=== PATIENT | female | born 1995 | race Two or more races ===

== ENCOUNTER 2017-01-30 03:58 | Emergency (ER) | payer SELFPAY ==
[2017-01-30] MEDS ORDERED: ONDANSETRON HCL INJ/PF 4 MG/2 ML SDV IV ONE (04:22)
[2017-01-30] MEDS ORDERED: NORMAL SALINE 1000 ML 1,000 ML IV ONE (04:22)
[2017-01-30] MEDS ORDERED: MORPHINE SULFATE 10 MG/ML INJ IV ONE (04:22)
--- NOTE | 2017-01-30 04:24 | ER Document Report ---
ED GI/ - General Time seen by provider: 04:15 <ERICA VERA - Last Filed: 01/30/17 05:39> <DENITA BOWMAN - Last Filed: 01/30/17 06:17> - General Chief Complaint: Abdominal Pain Stated Complaint: ABDOMINAL PAIN Notes: Patient is a 22-year-old female that comes emergency department for chief complaint of pain in her right lower quadrant, she states that at about midnight she began having pain in her mid upper abdomen and she vomited twice, she states that pain has progressed and become constant worsening pain in her right lower abdomen. She denies flank pain, dysuria, vaginal discharge or bleeding, she denies any surgeries, medications, or past medical history. LMP a few days ago. (ERICA VERA) - Related Data Allergies/Adverse Reactions: DayQuil Adverse Reaction (Uncoded 01/30/17 03:59) Hives Past Medical History - General Information source: Patient - Social History Smoking Status: Current Some Day Smoker Frequency of alcohol use: Social Drug Abuse: None Lives with: Family Family History: Reviewed & Not Pertinent - Medical History Medical History: Negative Renal/ Medical History: Denies: Hx Peritoneal Dialysis Surgical Hx: Negative - Immunizations Immunizations up to date: Yes Hx Diphtheria, Pertussis, Tetanus Vaccination: Yes <ERICA VREA - Last Filed: 01/30/17 05:39> Review of Systems - Review of Systems Constitutional: No symptoms reported EENT: No symptoms reported Cardiovascular: No symptoms reported Respiratory: No symptoms reported Gastrointestinal: See HPI Genitourinary: No symptoms reported Female Genitourinary: No symptoms reported Musculoskeletal: No symptoms reported Skin: No symptoms reported Hematologic/Lymphatic: No symptoms reported Neurological/Psychological: No symptoms reported <ERICA VERA - Last Filed: 01/30/17 05:39> Physical Exam - Vital signs Interpretation: Normal - General General appearance: Appears well, Alert - HEENT Head: Normocephalic, Atraumatic Eyes: Normal Pupils: PERRL - Respiratory Respiratory status: No respiratory distress Chest status: Nontender Breath sounds: Normal. No: Decreased air movement, Wheezing Chest palpation: Normal - Cardiovascular Rhythm: Regular. No: Tachycardia Heart sounds: Normal auscultation, S1 appreciated, S2 appreciated Murmur: No - Abdominal Inspection: Normal Distension: No distension Bowel sounds: Normal Tenderness: Tender - There is mild tenderness in the generalized upper abdomen, there is tenderness in the right lower quadrant also, there is no significant pain or overt guarding, otherwise soft and benign abdomen, McBurney's point - Patient is tender specifically in McBurney's point, there is no rebound tenderness Organomegaly: No organomegaly - Back Back: Normal, Nontender. No: Tender - Extremities General upper extremity: Normal inspection, Nontender, Normal color, Normal ROM , Normal temperature General lower extremity: Normal inspection, Nontender, Normal color, Normal ROM , Normal temperature, Normal weight bearing. No: Sheela's sign - Neurological Neuro grossly intact: Yes Cognition: Normal Orientation: AAOx4 Jimmy Coma Scale Eye Opening: Spontaneous Jimmy Coma Scale Verbal: Oriented Jimmy Coma Scale Motor: Obeys Commands Jimmy Coma Scale Total: 15 Speech: Normal Motor strength normal: LUE, RUE, LLE, RLE Sensory: Normal - Psychological Associated symptoms: Normal affect, Normal mood - Skin Skin Temperature: Warm Skin Moisture: Dry Skin Color: Normal <ERICA VERA - Last Filed: 01/30/17 05:39> Course - Laboratory Result Diagrams: 01/30/17 04:30 01/30/17 04:30 <ERICA VERA - Last Filed: 01/30/17 05:39> - Laboratory Result Diagrams: 01/30/17 04:30 01/30/17 04:30 <DENITA BOWMAN - Last Filed: 01/30/17 06:17> - Re-evaluation Re-evalutation: Patient was given medication, this did help, multiple re-evaluations were performed, patient was stating that now she is intermittently irritated in her upper abdomen but she no longer has any pain in her lower abdomen. CBC, chemistry, urinalysis all unremarkable. HCG negative. Performed additional examinations of the right lower quadrant, initial one showed tenderness, however reexamination showed no tenderness whatsoever. Completely soft and benign abdomen. As a result I discussed this with patient in detail the can, CAT scan was canceled, patient admits that she has this symptom always in the same location fairly frequently. She states that her diet recently has been very poor. Patient also smokes and drinks, I suspect there is a degree of gastritis for her upper abdomen. I did discuss return precautions in detail, patient will be placed on medication for nausea and upper abdominal inflammation , patient states understanding and agreement. (ERICA VERA) - Vital Signs Vital signs: Temp Pulse Resp BP Pulse Ox 97.5 F 56 L 16 129/74 H 100 01/30/17 04:03 01/30/17 04:03 01/30/17 04:03 01/30/17 04:03 01/30/17 04:03 - Laboratory Laboratory results interpreted by me: 01/30/17 04:30 Total Protein 8.5 H Discharge <ERICA VERA - Last Filed: 01/30/17 05:39> <DENITA BOWMAN - Last Filed: 01/30/17 06:17> - Discharge Clinical Impression: Abdominal pain Qualifiers: Abdominal location: generalized Qualified Code(s): R10.84 - Generalized abdominal pain Condition: Stable Disposition: HOME, SELF-CARE Additional Instructions: Your workup and exam do not indicate an acute surgical abnormality at this time. Take medications as prescribed, stop smoking, reduce alcohol intake, temporarily do not take anti-inflammatories until symptoms have resolved. Begin with clear fluids and bland foods. Follow-up with primary care. Return immediately if he develops any concerning or worsening symptoms including worsening abdominal pain, fever, uncontrolled vomiting, etc. Prescriptions: Omeprazole 40 mg PO DAILY #30 capsule. Promethazine HCl [Phenergan 25 mg Tablet] 1 - 2 tab PO Q6H PRN #15 tablet PRN Reason: Forms: Return to Work
[2017-01-30 04:31] LABS: APPEARANCE,URINE SLIGHTLY-CLOUDY; BILIRUBIN,URINE NEGATIVE (NEGATIVE); GLUCOSE, URINE NEGATIVE (NEGATIVE); KETONES,URINE NEGATIVE (NEGATIVE); LEUKOCYTE ESTERASE,URINE NEGATIVE (NEGATIVE); NITRITE,URINE NEGATIVE (NEGATIVE); PROTEIN,URINE NEGATIVE (NEGATIVE); URINE SPECIFIC GRAVITY 1.024; UROBILINOGEN,URINE NEGATIVE mg/dL (<2.0)
[2017-01-30 04:53] LABS: ABSOLUTE EOSINOPHILS # (AUTO) 0.1 10^3/uL (0.0-0.6); ABSOLUTE LYMPHOCYTES (AUTO) 3.5 10^3/uL (0.5-4.7); ABSOLUTE MONOCYTES (AUTO) 0.6 10^3/uL (0.1-1.4); ABSOLUTE NEUT (AUTO) 5.7 10^3/uL (1.7-8.2); BASOPHILS % (AUTO) 0.3 % (0-2); EOSINOPHILS % (AUTO) 0.9 % (0-6); HEMOGLOBIN 12.5 g/dL (12.0-15.5); HGB HCT DIFFERENCE 0.5; LYMPHOCYTES % (AUTO) 35.5 % (13-45); MEAN CORPUSCULAR HEMOGLOBIN 28.2 pg (27.0-33.4); MEAN CORPUSCULAR HGB CONC 33.9 g/dL (32.0-36.0); MEAN CORPUSCULAR VOLUME 83 fl (80-97); MONOCYTES % (AUTO) 5.9 % (3-13); RED BLOOD COUNT 4.45 10^6/uL (3.72-5.28); RED CELL DISTRIBUTION WIDTH 12.3 % (11.5-14.0); SEGMENTED NEUTROPHILS % (AUTO) 57.4 % (42-78); WHITE BLOOD COUNT 9.9 10^3/uL (4.0-10.5)
[2017-01-30 05:17] LABS: ALANINE AMINOTRANSFERASE 30 U/L (9-52); ALBUMIN 4.6 g/dL (3.5-5.0); ALKALINE PHOSPHATASE 109 U/L (38-126); ANION GAP 14 (5-19); ASPARTATE AMINO TRANSFERASE 23 U/L (14-36); BILIRUBIN,DIRECT 0.3 mg/dL (0.0-0.4); BILIRUBIN,TOTAL 0.5 mg/dL (0.2-1.3); BLOOD UREA NITROGEN 14 mg/dL (7-20); CALCIUM 9.7 mg/dL (8.4-10.2); CARBON DIOXIDE 27 mmol/L (22-30); CHLORIDE 102 mmol/L (98-107); CREATININE RESULT 0.73 mg/dL (0.52-1.25); GLUCOSE 101 mg/dL (75-110); POTASSIUM 4.1 mmol/L (3.6-5.0); SODIUM 143.4 mmol/L (137-145); TOTAL PROTEIN 8.5 g/dL (6.3-8.2)
[2017-01-30 06:22] VITALS: BP 96/52
== END 2017-01-30 06:22 | disposition home or self-care (01) ==
LOC: ER 03:58
DX: R10.84 Generalized abdominal pain (principal); R10.31 Right lower quadrant pain; R11.10 Vomiting, unspecified; F17.200 Nicotine dependence, unspecified, uncomplicated
CPT/HCPCS: 99284; 36415; 85025; 81025; 80053; 81001; J2270; J2405; J7030

== ENCOUNTER 2018-10-06 16:02 | Emergency (ER) | payer OTHER ==
[2018-10-06] MEDS ORDERED: CYCLOBENZAPRINE HCL 10 MG TABLET PO ONE (17:20)
[2018-10-06] MEDS ORDERED: IBUPROFEN 800 MG TABLET PO ONE (17:20)
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
[2018-10-06 19:29] VITALS: BP 107/64
== END 2018-10-06 19:29 | disposition home or self-care (01) ==
LOC: ER 16:02
DX: T30.0 Burn of unspecified body region, unspecified degree (principal); S16.1XXA Strain of muscle, fascia and tendon at neck level, initial encounter; S39.012A Strain of muscle, fascia and tendon of lower back, initial encounter; V43.52XA Car driver injured in collision with other type car in traffic accident, initial encounter; W22.10XA Striking against or struck by unspecified automobile airbag, initial encounter
CPT/HCPCS: 99284; 72050; 72125; 72128; L0120